=== PATIENT | male | born 1950 | race Native Hawaiian/Other Pacific Islander ===

== ENCOUNTER 2020-06-22 15:37 | Outpatient (CLI) | payer OTHER | END 2020-06-22 23:58 | disposition home or self-care (01) | LOC: INF 15:37 | PROVIDERS: ATTEND Internal Medicine | DX: Z23 Encounter for immunization (principal) | CPT/HCPCS: 96372 ==

== ENCOUNTER 2020-07-20 14:16 | Outpatient (CLI) | payer OTHER | END 2020-07-20 22:02 | disposition home or self-care (01) | LOC: INF 14:16 | PROVIDERS: ATTEND Internal Medicine | DX: Z23 Encounter for immunization (principal) | CPT/HCPCS: 96372 ==